=== PATIENT | female | born 1995 | race American Indian/Alaskan Native ===

== ENCOUNTER 2016-12-18 21:09 | Emergency (ER) | payer MEDICAID ==
[2016-12-18 21:10] VITALS: BMI 54.9
[2016-12-18 21:21] VITALS: BP 126/91; PULSE 92; RESP 19; TEMP 98.6; O2SAT 99
--- NOTE | 2016-12-18 21:57 | ED PDOC ---
Arrival/HPI - General Chief Complaint: Abdominal Pain Time Seen by Provider: 12/18/16 21:30 Historian: Patient - History of Present Illness Narrative History of Present Illness (Text): 12/18/16 21:55 21 year old female whose past medical history includes impulse control disorder , major depression, PTSD, and migraines presents to the emergency department with intermittent abdominal pain for the past few days. Denies fever, nausea, vomiting, constipation, or stool changes. She states this has never happened before. PMD: Dr. Artis Time/Duration: < week Symptom Onset: Gradual Symptom Course: Intermittent Associated Symptoms (Text): None Past Medical History - Provider Review Nursing Documentation Reviewed: Yes - Infectious Disease Hx of Infectious Diseases: None - Tetanus Immunization Tetanus Immunization: Unknown - Cardiac Hx Cardiac Disorders: No - Pulmonary Hx Respiratory Disorders: Yes Hx Bronchitis: Yes - Neurological Hx Neurological Disorder: No - HEENT Hx HEENT Disorder: No - Renal Hx Renal Disorder: No - Endocrine/Metabolic Hx Endocrine Disorders: No - Hematological/Oncological Hx Blood Disorders: No - Integumentary Hx Dermatological Disorder: No - Musculoskeletal/Rheumatological Hx Falls: No - Gastrointestinal Hx Gastrointestinal Disorders: No - Genitourinary/Gynecological Hx Genitourinary Disorders: No Other/Comment: i 2 abortions - Psychiatric Hx Anxiety: Yes Hx Depression: Yes Hx Post Traumatic Stress Disorder: Yes Hx Substance Use: No Other/Comment: suicde attempt - Surgical History Other/Comment: x 1 - Anesthesia Hx Anesthesia: No Hx Anesthesia Reactions: No - Suicidal Assessment Feels Threatened In Home Enviroment: No Family/Social History - Physician Review Nursing Documentation Reviewed: Yes Family/Social History: Unknown Family HX Smoking Status: Never Smoked Hx Alcohol Use: No Hx Substance Use: No Allergies/Home Meds Allergies/Adverse Reactions: Allergies Latex, Natural Rubber Allergy (Mild, Verified 12/18/16 21:17) ITCHING Home Medications: Home Meds Medication Instructions Recorded Confirmed Albuterol HFA [Ventolin HFA 90 1 puff IH PRN PRN 12/18/16 12/18/16 mcg/actuation (8 g)] Review of Systems - Physician Review All systems were reviewed & negative as marked: Yes - Review of Systems Constitutional: absent: Fevers Gastrointestinal: Abdominal Pain. absent: Stool Changes, Constipation, Nausea, Vomiting Physical Exam Vital Signs Reviewed: Yes Vital Signs Temp Pulse Resp BP Pulse Ox 12/18/16 21:20 98.6 F 92 H 19 126/91 H 99 Temperature: Afebrile Blood Pressure: Normal Pulse: Regular Respiratory Rate: Normal Appearance: Positive for: Well-Appearing, Non-Toxic, Comfortable Pain Distress: None Mental Status: Positive for: Alert and Oriented X 3 - Systems Exam Head: Present: Atraumatic, Normocephalic Pupils: Present: PERRL Extroacular Muscles: Present: EOMI Conjunctiva: Present: Normal Mouth: Present: Moist Mucous Membranes Neck: Present: Normal Range of Motion Respiratory/Chest: Present: Clear to Auscultation, Good Air Exchange. No: Respiratory Distress, Accessory Muscle Use Cardiovascular: Present: Regular Rate and Rhythm, Normal S1, S2. No: Murmurs Abdomen: Present: Normal Bowel Sounds, Other (Obese). No: Tenderness, Distention, Peritoneal Signs Upper Extremity: No: Cyanosis, Edema Lower Extremity: Present: Normal Inspection. No: Edema Neurological: Present: GCS=15 Skin: Present: Warm, Dry, Normal Color. No: Rashes Psychiatric: Present: Alert, Oriented x 3, Normal Insight Medical Decision Making ED Course and Treatment: Impression: 21 year old female who denies any past medical history presents to the emergency department with intermittent abdominal pain for the past few days. Differential Diagnosis included but are not limited to: Plan: -- Pepcid -- Labs -- Reassess and disposition Progress Notes: pt sleeping throughout ER stay. tolerating po. appears in no distress. labs reviewed and gone over with patient. dx abd pain, gastritis pepcid follow up pcp tomorrow 12/19/16 11:29 - Lab Interpretations Lab Results: 12/18/16 22:33 12/18/16 22:17 Lab Results 12/18/16 22:59: Urine Color Yellow, Urine Appearance Sl cloudy, Urine pH 6.0, Ur Specific [place] >= 1.030, Urine Protein Trace H, Urine Glucose (UA) Negative , Urine Ketones Negative, Urine Blood Moderate H, Urine Nitrate Negative, Urine Bilirubin Negative, Urine Urobilinogen 0.2, Ur Leukocyte Esterase Small H, Urine RBC 2 - 5, Urine WBC 10 - 15, Ur Epithelial Cells 1 - 3, Urine Bacteria Few 12/18/16 22:33: WBC 9.1 D, RBC 4.12, Hgb 12.5, Hct 37.7, MCV 91.5, MCH 30.3, MCHC 33.2, RDW 12.8, Plt Count 238, MPV 10.6, Gran % 47.6 L, Lymph % (Auto) 40.0 H, [place] % (Auto) 7.7 H, Eos % (Auto) 4.0, Baso % (Auto) 0.7, Gran # 4.35, Lymph # 3.7 H, [place] # 0.7 H, Eos # 0.4, Baso # 0.06 12/18/16 22:17: Sodium 136, Potassium 3.9, Chloride 103, Carbon Dioxide 26, Anion Gap 11, BUN 17, Creatinine 0.8, Est GFR ( Amer) > 60, Est GFR (Non- Af Amer) > 60, Random Glucose 94, Calcium 9.1, Total Bilirubin 0.6, AST 22, ALT 33, Alkaline Phosphatase 117, Total Protein 6.8, Albumin 3.7, Globulin 3.1, Albumin/Globulin Ratio 1.2, Lipase 87 - Medication Orders Current Medication Orders: Discontinued Medications Famotidine (Pepcid) 20 mg IVP STAT STA Stop: 12/18/16 22:01 Last Admin: 12/19/16 00:06 Dose: 20 mg - Scribe Statement The provider has reviewed the documentation as recorded by the Jacobo Herr Provider Scribe Attestation: All medical record entries made by the Jacobo were at my direction and personally dictated by me. I have reviewed the chart and agree that the record accurately reflects my personal performance of the history, physical exam, medical decision making, and the department course for this patient. I have also personally directed, reviewed, and agree with the discharge instructions and disposition. Disposition/Present on Arrival - Present on Arrival Any Indicators Present on Arrival: No History of DVT/PE: No History of Uncontrolled Diabetes: No Urinary Catheter: No History of Decub. Ulcer: No History Surgical Site Infection Following: None - Disposition Have Diagnosis and Disposition been Completed?: Yes Diagnosis: Gastritis, Abdominal pain Disposition: HOME/ ROUTINE Disposition Time: 23:00 Condition: IMPROVED Discharge Instructions (ExitCare): Gastritis (ED) Additional Instructions: follow up with your primary doctor tomorrow return to the emergency department with any worsening or concerning symptoms Prescriptions: Famotidine [Pepcid] 20 mg PO BID PRN #10 tab PRN Reason: Heartburn Referrals: Yvette Artis MD [Primary Care Provider] - Follow up with primary
[2016-12-18 22:42] LABS: ADD MANUAL DIFF? NO; BASO # 0.06 K/mm3 (0.0-2.0); BASO % 0.7 % (0.0-3.0); EOS # 0.4 (0.0-0.7); GRAN # 4.35 (1.4-6.5); GRAN % 47.6 % (50.0-68.0); HEMATOCRIT 37.7 % (36.0-48.0); LYMPH # 3.7 (1.2-3.4); MEAN CELL VOLUME 91.5 fL (80.0-105.0); MEAN CORPUSCULAR HEMOGLOBIN 30.3 pg (25.0-35.0); MEAN CORPUSCULAR HGB CONC 33.2 g/dl (31.0-37.0); MEAN PLATELET VOLUME 10.6 fl (7.0-11.0); MONO # 0.7 (0.1-0.6); MONO % 7.7 % (1.0-6.0); PLATELET COUNT 238 10^3/uL (120.0-450.0); RED CELL DISTRIBUTION WIDTH 12.8 % (11.5-14.5); WHITE BLOOD COUNT 9.1 10^3/ul (4.5-11.0)
[2016-12-18 22:52] LABS: ALB/GLOB RATIO 1.2 (1.1-1.8); ALKALINE PHOSPHATASE 117 U/L (38-133); ALT/SGPT 33 U/L (7-56); AST/SGOT 22 U/L (15-39); BILIRUBIN,TOTAL 0.6 mg/dL (0.2-1.3); BLOOD UREA NITROGEN 17 mg/dL (7-21); CALCIUM 9.1 mg/dL (8.4-10.5); CARBON DIOXIDE 26 mmol/L (21-33); CHLORIDE 103 mmol/L (98-107); GFR AFRICAN-AMERICAN > 60; GLUCOSE,RANDOM 94 mg/dL (70-110); LIPASE 87 U/L (23-300); POTASSIUM 3.9 mmol/L (3.6-5.0); SODIUM 136 mmol/L (132-148); TOTAL PROTEIN 6.8 g/dL (5.8-8.3)
[2016-12-19 00:42] LABS: URINE BILIRUBIN NEGATIVE (NEGATIVE); URINE BLOOD MODERATE (NEGATIVE); URINE GLUCOSE (UA) NEGATIVE (NEGATIVE); URINE KETONE NEGATIVE (NEGATIVE); URINE LEUKOCYTE ESTERASE SMALL Leu/uL (NEGATIVE); URINE PROTEIN TRACE mg/dL (<30 mg/dL); URINE UROBILINOGEN 0.2 E.U./dL (<1 E.U./dL)
[2016-12-19 00:57] LABS: URINE APPEARANCE SL CLOUDY (CLEAR); URINE COLOR YELLOW (YELLOW)
[2016-12-19 01:09] LABS: URINE BACTERIA FEW (NEG)
== END 2016-12-19 00:09 | disposition home or self-care (01) ==
LOC: ED 21:09
DX: R10.9 Unspecified abdominal pain (principal); K29.70 Gastritis, unspecified, without bleeding

== ENCOUNTER 2017-01-07 02:34 | Observation (INO) | payer MEDICAID ==
[2017-01-07 02:34] VITALS: BMI 54.9
--- NOTE | 2017-01-07 03:18 | ED PDOC ---
Arrival/HPI - General Chief Complaint: Lower Extremity Problem/Injury Time Seen by Provider: 01/07/17 02:43 Historian: Patient - History of Present Illness Narrative History of Present Illness (Text): 01/07/17 03:18 Andreas Ramirez is a 21 year old female, whose past medical history includes depression, who presents to the ED complaining of left lower leg pain for 1 week. Patient reports associate swelling to the area. Patient denies any recent trauma, fever, chills, nausea, vomiting, weakness/numbness/tingling in the extremity, or any other complaints. Time/Duration: 1 week Symptom Onset: Gradual Symptom Course: Unchanged Activities at Onset: Rest, Light Context: Home Past Medical History - Provider Review Nursing Documentation Reviewed: Yes - Infectious Disease Hx of Infectious Diseases: None - Tetanus Immunization Tetanus Immunization: Unknown - Cardiac Hx Cardiac Disorders: No - Pulmonary Hx Respiratory Disorders: Yes Hx Bronchitis: Yes - Neurological Hx Neurological Disorder: No - HEENT Hx HEENT Disorder: No - Renal Hx Renal Disorder: No - Endocrine/Metabolic Hx Endocrine Disorders: No - Hematological/Oncological Hx Blood Disorders: No - Integumentary Hx Dermatological Disorder: No - Musculoskeletal/Rheumatological Hx Falls: No - Gastrointestinal Hx Gastrointestinal Disorders: No - Genitourinary/Gynecological Hx Genitourinary Disorders: No Other/Comment: i 2 abortions - Psychiatric Hx Anxiety: Yes Hx Depression: Yes Hx Post Traumatic Stress Disorder: Yes Hx Substance Use: No Other/Comment: suicde attempt - Surgical History Other/Comment: x 1 - Anesthesia Hx Anesthesia: No Hx Anesthesia Reactions: No - Suicidal Assessment Feels Threatened In Home Enviroment: No Family/Social History - Physician Review Nursing Documentation Reviewed: Yes Family/Social History: Unknown Family HX Smoking Status: Light Smoker < 10 Cigarettes Daily Hx Alcohol Use: No Hx Substance Use: No Allergies/Home Meds Allergies/Adverse Reactions: Allergies Latex, Natural Rubber Allergy (Mild, Verified 12/18/16 21:17) ITCHING Review of Systems - Physician Review All systems were reviewed & negative as marked: Yes - Review of Systems Constitutional: Normal. absent: Fevers Respiratory: Normal. absent: SOB, Cough Cardiovascular: Normal. absent: Chest Pain Gastrointestinal: Normal. absent: Abdominal Pain, Diarrhea, Nausea, Vomiting Genitourinary Female: Normal. absent: Dysuria, Frequency, Hematuria, Urine Output Changes Musculoskeletal: Other (+left foot pain with swelling). absent: Back Pain, Neck Pain Skin: Normal Neurological: Normal. absent: Headache, Dizziness Psychiatric: Normal Physical Exam Vital Signs Reviewed: Yes Vital Signs Temp Pulse Resp BP Pulse Ox 01/07/17 02:58 98.2 F 82 17 137/70 97 Temperature: Afebrile Blood Pressure: Normal Pulse: Regular Respiratory Rate: Normal Appearance: Positive for: Well-Appearing, Non-Toxic, Comfortable Pain Distress: None Mental Status: Positive for: Alert and Oriented X 3 - Systems Exam Head: Present: Atraumatic, Normocephalic Pupils: Present: PERRL Extroacular Muscles: Present: EOMI Conjunctiva: Present: Normal Mouth: Present: Moist Mucous Membranes Neck: Present: Normal Range of Motion Respiratory/Chest: Present: Clear to Auscultation, Good Air Exchange. No: Respiratory Distress, Accessory Muscle Use Cardiovascular: Present: Regular Rate and Rhythm, Normal S1, S2. No: Murmurs Abdomen: Present: Normal Bowel Sounds. No: Tenderness, Distention, Peritoneal Signs Back: Present: Normal Inspection Upper Extremity: Present: Normal Inspection. No: Cyanosis, Edema Lower Extremity: Present: Swelling (Left leg swelling with warmth and erythema) , Neurovascularly Intact, Capillary Refill < 2 s. No: Edema Neurological: Present: GCS=15, CN II-XII Intact, Speech Normal Skin: Present: Warm, Dry, Normal Color. No: Rashes Psychiatric: Present: Alert, Oriented x 3, Normal Insight, Normal Concentration Medical Decision Making ED Course and Treatment: 01/07/17 03:18 Impression: 21 year old female c/o left lower leg swelling with pain for 1 week. Differential Diagnosis included but are not limited to: cellulitis vs. DVT vs. gout vs. pseudogout Plan: -- US Duplex Lower Extremities -- Labs, Uric acid, blood culture -- UA -- Reassess and disposition Progress Notes: 01/07/17 04:38 Reviewed sono, US Duplex Lower Extremities shows no evidence of DVT. 01/07/17 05:[address] Fletcher, medical record clerk preparation plant repairer, who is aware and agrees with plan. 01/07/17 05:[address] Raymundo Silverio, who is aware and agrees with plan. Accepts pt in to hospitalist service. Pt will go to [facility] observation for cellulitis. Vanco and Zosyn ordered. Pt is no acute distress. Discussed results and plan with pt, who is aware and verbalizes understanding. - Lab Interpretations Lab Results: 01/07/17 03:45 01/07/17 04:10 Lab Results 01/07/17 04:10: Sodium 136, Potassium 4.0, Chloride 106, Carbon Dioxide 26, Anion Gap 8 L, BUN 12, Creatinine 0.8, Est GFR ( Amer) > 60, Est GFR (Non -Af Amer) > 60, Random Glucose 97, Uric Acid 6.4 H, Calcium 8.8, Total Bilirubin 0.3, AST 21, ALT 28, Alkaline Phosphatase 130, Total Protein 6.3, Albumin 3.4, Globulin 2.9, Albumin/Globulin Ratio 1.2 01/07/17 03:45: WBC 5.8 D, RBC 3.53, Hgb 10.7 L, Hct 33.1 L, MCV 93.8, MCH 30.3 , MCHC 32.3, RDW 13.6, Plt Count 195, MPV 11.4 H I have reviewed the lab results: Yes - RAD Interpretation Radiology Orders: 01/07/17 03:27 DUPLEX LOWER EXTRM VEIN BILAT [US] Stat - Medication Orders Current Medication Orders: Vancomycin HCl/Dextrose (Vancocin) 200 mls @ 133.333 mls/hr IV STAT STA PRN Reason: Protocol Stop: 01/07/17 07:12 Piperacillin Sod/Tazobactam Sod (Zosyn 3.375 In Ns 100ml) 100 mls @ 200 mls/hr IV STAT STA PRN Reason: Protocol Stop: 01/07/17 06:14 - Scribe Statement The provider has reviewed the documentation as recorded by the Scribbuster Rocha All medical record entries made by the Scribe were at my direction and personally dictated by me. I have reviewed the chart and agree that the record accurately reflects my personal performance of the history, physical exam, medical decision making, and the department course for this patient. I have also personally directed, reviewed, and agree with the discharge instructions and disposition. Disposition/Present on Arrival - Present on Arrival Any Indicators Present on Arrival: No History of DVT/PE: No History of Uncontrolled Diabetes: No Urinary Catheter: No History of Decub. Ulcer: No History Surgical Site Infection Following: None - Disposition Have Diagnosis and Disposition been Completed?: Yes Diagnosis: Cellulitis of leg Disposition: HOSPITALIZED Disposition Time: 05:49 Patient Plan: Observation Condition: STABLE
[2017-01-07 04:05] LABS: HEMOGLOBIN 10.7 gm/dL (12.0-16.0); MEAN CELL VOLUME 93.8 fL (80.0-105.0); MEAN CORPUSCULAR HEMOGLOBIN 30.3 pg (25.0-35.0); MEAN CORPUSCULAR HGB CONC 32.3 g/dl (31.0-37.0); MEAN PLATELET VOLUME 11.4 fl (7.0-11.0); RBC 3.53 10^6/uL (3.5-6.1); RED CELL DISTRIBUTION WIDTH 13.6 % (11.5-14.5)
[2017-01-07 04:09] LABS: WHITE BLOOD COUNT 5.8 10^3/ul (4.5-11.0)
[2017-01-07 04:34] LABS: ALB/GLOB RATIO 1.2 (1.1-1.8); ALBUMIN 3.4 g/dL (3.0-4.8); ALT/SGPT 28 U/L (7-56); AST/SGOT 21 U/L (15-39); BLOOD UREA NITROGEN 12 mg/dL (7-21); CALCIUM 8.8 mg/dL (8.4-10.5); GFR AFRICAN-AMERICAN > 60; GFR NON-AFRICAN AMERICAN > 60; URIC ACID 6.4 mg/dL (2.5-6.2)
--- NOTE | 2017-01-07 05:40 | CP.PCM.HP ---
History of Present Illness - History of Present Illness History of Present Illness: cc: foot pain HPI: Patient is a 21yo female with past medical history as stated below that presents c/o LLE pain for the past 2 weeks. Patient reports that her left foot and ankle first began to swell and subsequently the pain began. She described the pain as a pressure, non-radiating and 7/10 in severity. She denies any alleviating or exacerbating factors. Denies trying any medications at home. Reports that she did not see her PMD, Dr. Artis despite the pain ongoing for the past 2 weeks. She subsequently decided to come to the ED, once the pain and swelling impaired her ability to do her ADL's. Denies chest pain, palpitations, SOB, abdominal pain, nausea, vomiting, fever, chills, cough. 12point ROS as per HPI above, otherwise negative PMHx: polysubstance abuse; suicide attempt, depression, morbid obesity PSHx: R ankle surgery Allergies: latex Family hx: heart condition, unknown Social Hx: Denies tobacco use, history of polysubstance abuse, social alcohol use; Live alone PMD: Dr Artis Present on Admission - Present on Admission Any Indicators Present on Admission: No Past Patient History - Infectious Disease Hx of Infectious Diseases: None - Tetanus Immunizations Tetanus Immunization: Unknown - Past Social History Smoking Status: Light Smoker < 10 Cigarettes Daily - CARDIAC Hx Cardiac Disorders: No - PULMONARY Hx Respiratory Disorders: Yes Hx Bronchitis: Yes - NEUROLOGICAL Hx Neurological Disorder: No - HEENT Hx HEENT Problems: No - RENAL Hx Chronic Kidney Disease: No - ENDOCRINE/METABOLIC Hx Endocrine Disorders: No - HEMATOLOGICAL/ONCOLOGICAL Hx Blood Disorders: No - INTEGUMENTARY Hx Dermatological Problems: No - MUSCULOSKELETAL/RHEUMATOLOGICAL Hx Falls: No - GASTROINTESTINAL Hx Gastrointestinal Disorders: No - GENITOURINARY/GYNECOLOGICAL Hx Genitourinary Disorders: No Other/Comment: i 2 abortions - PSYCHIATRIC Hx Anxiety: Yes Hx Depression: Yes Hx Post Traumatic Stress Disorder: Yes Hx Substance Use: No Other/Comment: suicde attempt - SURGICAL HISTORY Other/Comment: x 1 - ANESTHESIA Hx Anesthesia: No Hx Anesthesia Reactions: No Meds Allergies/Adverse Reactions: Allergies Allergy/AdvReac Type Severity Reaction Status Date / Time Latex, Natural Rubber Allergy Mild ITCHING Verified 12/18/16 21:17 Physical Exam - Constitutional Appears: Non-toxic, No Acute Distress Additional comments: morbidly obese - Head Exam Head Exam: ATRAUMATIC, NORMAL INSPECTION, NORMOCEPHALIC - Eye Exam Eye Exam: EOMI, PERRL - ENT Exam ENT Exam: Mucous Membranes Moist - Neck Exam Neck exam: Positive for: Normal Inspection. Negative for: Lymphadenopathy, Tenderness - Respiratory Exam Respiratory Exam: Clear to Auscultation Bilateral. absent: Rales, Rhonchi, Wheezes - Cardiovascular Exam Cardiovascular Exam: RRR, +S1, +S2. absent: Gallop, JVD, Rubs - GI/Abdominal Exam GI & Abdominal Exam: Normal Bowel Sounds, Soft. absent: Firm, Guarding, Rigid, Tenderness - Extremities Exam Additional comments: 2-3+ pitting LLE edema progressing from the foot up towards the campos ; - Neurological Exam Neurological exam: Alert, CN II-XII Intact, Oriented x3 - Psychiatric Exam Psychiatric exam: Normal Affect, Normal Mood - Skin Skin Exam: Dry, Intact, Normal Color, Warm Results - Vital Signs Recent Vital Signs: Last Vital Signs Temp 98.2 F 01/07/17 02:58 Pulse 82 01/07/17 02:58 Resp 17 01/07/17 02:58 BP 137/70 01/07/17 02:58 Pulse Ox 97 01/07/17 02:58 - Labs Result Diagrams: 01/07/17 03:45 01/07/17 04:10 Labs: Laboratory Results - last 24 hr 01/07/17 01/07/17 03:45 04:10 WBC 5.8 D RBC 3.53 Hgb 10.7 L Hct 33.1 L MCV 93.8 MCH 30.3 MCHC 32.3 RDW 13.6 Plt Count 195 MPV 11.4 H Sodium 136 Potassium 4.0 Chloride 106 Carbon Dioxide 26 Anion Gap 8 L BUN 12 Creatinine 0.8 Est GFR ( Amer) > 60 Est GFR (Non-Af Amer) > 60 Random Glucose 97 Uric Acid 6.4 H Calcium 8.8 Total Bilirubin 0.3 AST 21 ALT 28 Alkaline Phosphatase 130 Total Protein 6.3 Albumin 3.4 Globulin 2.9 Albumin/Globulin Ratio 1.2 Assessment & Plan - Assessment and Plan (Free Text) Plan: 21yo female with history of depression, polysubstance abuse, morbid obesity presents c/o LLE swelling/pain for the past 2 weeks 1. LLE swelling pain likely 2/2 cellulitis vs gout vs DVT -Lower extremity doppler pending official read; however preliminarily negative -afebrile, no leukocytosis -Patient given zosyn and vanc in the ED -Blood, urine cultures pending -Procalcitonin pending -ID consulted - Dr. Hollis 2. GI/DVT Prophylaxis -Protonix/Heparin SC Patient seen and case discussed with attending, Dr. Silverio - Date & Time Date: 01/07/17 Time: 06:01
[2017-01-07] MEDS ORDERED: Piperacillin/Tazobact 3.375 gm 100 ML IV STA (05:45)
[2017-01-07] MEDS ORDERED: Vancomycin 1gm in NS 250ml 1 GM/250 ML BAG IVPB STA (05:50)
[2017-01-07 06:19] LABS: URINE BILIRUBIN NEGATIVE (NEGATIVE); URINE BLOOD LARGE (NEGATIVE); URINE GLUCOSE (UA) NEGATIVE (NEGATIVE); URINE LEUKOCYTE ESTERASE MODERATE Leu/uL (NEGATIVE); URINE NITRATE NEGATIVE (NEGATIVE); URINE PROTEIN TRACE mg/dL (<30 mg/dL); URINE UROBILINOGEN 0.2 E.U./dL (<1 E.U./dL)
[2017-01-07 06:24] LABS: HCG,QUALITATIVE URINE NEGATIVE (NEGATIVE)
[2017-01-07 06:25] LABS: URINE APPEARANCE SLIGHT-CLOUDY (CLEAR); URINE COLOR YELLOW (YELLOW)
[2017-01-07 06:30] LABS: URINE BACTERIA MOD (NEG); URINE EPITHELIAL CELLS 0 - 2 /hpf (0-5); URINE RBC 0 - 2 /hpf (0-2); URINE WBC TNTC /hpf (0-6)
--- NOTE | 2017-01-07 13:16 | US ---
HISTORY: Leg pain and swelling. Evaluate for DVT PHYSICIAN(S): Guzman Rosario MD. TECHNIQUE: Duplex sonography and color-flow Doppler with graded compression were used to evaluate the deep venous systems of both lower extremities. The exam is limited by body habitus. FINDINGS: The visualized deep venous systems of both lower extremities are sonographically normal and compressible. Normal wave forms and augmentation are seen. There is no sonographic evidence for deep venous thrombosis in the visualized segments of both lower extremities. IMPRESSION: No sonographic evidence for deep venous thrombosis in the visualized segments of both lower extremities.
[2017-01-07] MEDS: cefTRIAXone 1 gm 1 GM/100 ML BAG IVPB SCH (14:43)
--- NOTE | 2017-01-07 14:59 | RAD ---
PROCEDURE: Left Foot Radiographs. HISTORY: Foot pain COMPARISON: None. FINDINGS: BONES: Normal. No fracture. JOINTS: There is moderate hallux valgus angulation measuring 130 degrees SOFT TISSUES: Normal. OTHER FINDINGS: None. IMPRESSION: Moderate hallux valgus angulation
[2017-01-07 18:38] LABS: BARBITURATES, UR NEGATIVE (NEGATIVE); BENZODIAZEPINES, UR NEGATIVE (NEGATIVE); OPIATES, UR NEGATIVE (NEGATIVE); PHENCYCLIDINE, UR NEGATIVE (NEGATIVE)
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
[2017-01-08 08:41] VITALS: PULSE 72
[2017-01-08 08:56] LABS: BASO # 0.03 K/mm3 (0.0-2.0); BASO % 0.6 % (0.0-3.0); EOS # 0.5 (0.0-0.7); EOS % 8.3 % (1.5-5.0); GRAN # 2.71 (1.4-6.5); GRAN % 50.2 % (50.0-68.0); HEMOGLOBIN 11.3 gm/dL (12.0-16.0); LYMPH # 1.8 (1.2-3.4); LYMPH % 32.7 % (22.0-35.0); MEAN CELL VOLUME 92.4 fL (80.0-105.0); MEAN CORPUSCULAR HEMOGLOBIN 29.7 pg (25.0-35.0); MEAN CORPUSCULAR HGB CONC 32.1 g/dl (31.0-37.0); MEAN PLATELET VOLUME 10.5 fl (7.0-11.0); MONO # 0.4 (0.1-0.6); MONO % 8.2 % (1.0-6.0); PLATELET COUNT 209 10^3/uL (120.0-450.0); RBC 3.81 10^6/uL (3.5-6.1); RED CELL DISTRIBUTION WIDTH 13.3 % (11.5-14.5); WHITE BLOOD COUNT 5.4 10^3/ul (4.5-11.0)
[2017-01-08 09:00] LABS: ALB/GLOB RATIO 1.2 (1.1-1.8); ALBUMIN 3.3 g/dL (3.0-4.8); ALT/SGPT 32 U/L (7-56); AST/SGOT 25 U/L (15-39); BLOOD UREA NITROGEN 11 mg/dL (7-21); CALCIUM 8.6 mg/dL (8.4-10.5); GFR AFRICAN-AMERICAN > 60; GFR NON-AFRICAN AMERICAN > 60
[2017-01-08] MEDS: cefTRIAXone 1 gm 1 GM/100 ML BAG IVPB SCH (10:10)
--- NOTE | 2017-01-08 12:46 | CP.PCM.DIS ---
<[employer] - Last Filed: 01/08/17 15:06> Provider - Provider Date of Admission: 01/07/17 05:47 Attending physician: Danielle Castellano MD Primary care physician: Yvette Artis MD Consults: Infectious disease Time Spent in preparation of Discharge (in minutes): 40 Hospital Course - Lab Results Lab Results: Micro Results 01/07/17 11:00 Blood Blood Culture - Preliminary NO GROWTH AFTER 24 HOURS Most Recent Lab Values WBC 5.4 10^3/ul (4.5-11.0) 01/08/17 08:43 RBC 3.81 10^6/uL (3.5-6.1) 01/08/17 08:43 Hgb 11.3 gm/dL (12.0-16.0) L 01/08/17 08:43 Hct 35.2 % (36.0-48.0) L 01/08/17 08:43 MCV 92.4 fL (80.0-105.0) 01/08/17 08:43 MCH 29.7 pg (25.0-35.0) 01/08/17 08:43 MCHC 32.1 g/dl (31.0-37.0) 01/08/17 08:43 RDW 13.3 % (11.5-14.5) 01/08/17 08:43 Plt Count 209 10^3/uL (120.0-450.0) 01/08/17 08:43 MPV 10.5 fl (7.0-11.0) 01/08/17 08:43 Gran % 50.2 % (50.0-68.0) 01/08/17 08:43 Lymph % (Auto) 32.7 % (22.0-35.0) 01/08/17 08:43 [place] % (Auto) 8.2 % (1.0-6.0) H 01/08/17 08:43 Eos % (Auto) 8.3 % (1.5-5.0) H 01/08/17 08:43 Baso % (Auto) 0.6 % (0.0-3.0) 01/08/17 08:43 Gran # 2.71 (1.4-6.5) 01/08/17 08:43 Lymph # 1.8 (1.2-3.4) 01/08/17 08:43 [place] # 0.4 (0.1-0.6) 01/08/17 08:43 Eos # 0.5 (0.0-0.7) 01/08/17 08:43 Baso # 0.03 K/mm3 (0.0-2.0) 01/08/17 08:43 Sodium 135 mmol/L (132-148) 01/08/17 08:43 Potassium 3.9 mmol/L (3.6-5.0) 01/08/17 08:43 Chloride 105 mmol/L (98-107) 01/08/17 08:43 Carbon Dioxide 26 mmol/L (21-33) 01/08/17 08:43 Anion Gap 8 (10-20) L 01/08/17 08:43 BUN 11 mg/dL (7-21) 01/08/17 08:43 Creatinine 0.8 mg/dL (0.5-1.4) 01/08/17 08:43 Est GFR ( Amer) > 60 01/08/17 08:43 Est GFR (Non-Af Amer) > 60 01/08/17 08:43 Random Glucose 80 mg/dL (70-110) 01/08/17 08:43 Uric Acid 6.4 mg/dL (2.5-6.2) H 01/07/17 04:10 Calcium 8.6 mg/dL (8.4-10.5) 01/08/17 08:43 Total Bilirubin 0.5 mg/dL (0.2-1.3) 01/08/17 08:43 AST 25 U/L (15-39) 01/08/17 08:43 ALT 32 U/L (7-56) 01/08/17 08:43 Alkaline Phosphatase 87 U/L (38-133) 01/08/17 08:43 Total Protein 6.0 g/dL (5.8-8.3) 01/08/17 08:43 Albumin 3.3 g/dL (3.0-4.8) 01/08/17 08:43 Globulin 2.7 gm/dL 01/08/17 08:43 Albumin/Globulin Ratio 1.2 (1.1-1.8) 01/08/17 08:43 Procalcitonin < 0.05 NG/ML (0.19-0.49) L 01/07/17 04:00 Urine Color Yellow (YELLOW) 01/07/17 05:45 Urine Appearance Slight-cloudy (CLEAR) 01/07/17 05:45 Urine pH 6.0 (4.7-8.0) 01/07/17 05:45 Ur Specific Datto >= 1.030 (1.005-1.035) 01/07/17 05:45 Urine Protein Trace mg/dL (<30 mg/dL) H 01/07/17 05:45 Urine Glucose (UA) Negative mg/dL (NEGATIVE) 01/07/17 05:45 Urine Ketones Negative mg/dL (NEGATIVE) 01/07/17 05:45 Urine Blood Large (NEGATIVE) H 01/07/17 05:45 Urine Nitrate Negative (NEGATIVE) 01/07/17 05:45 Urine Bilirubin Negative (NEGATIVE) 01/07/17 05:45 Urine Urobilinogen 0.2 E.U./dL (<1 E.U./dL) 01/07/17 05:45 Ur Leukocyte Esterase Moderate Isabel/uL (NEGATIVE) H 01/07/17 05:45 Urine RBC 0 - 2 /hpf (0-2) 01/07/17 05:45 Urine WBC Tntc /hpf (0-6) 01/07/17 05:45 Ur Epithelial Cells 0 - 2 /hpf (0-5) 01/07/17 05:45 Urine Bacteria Mod (NEG) 01/07/17 05:45 Urine HCG, Qual Negative (NEGATIVE) 01/07/17 05:45 Urine Opiates Screen Negative (NEGATIVE) 01/07/17 18:13 Urine Methadone Screen Negative (NEGATIVE) 01/07/17 18:13 Ur Barbiturates Screen Negative (NEGATIVE) 01/07/17 18:13 Ur Phencyclidine Scrn Negative (NEGATIVE) 01/07/17 18:13 Ur Amphetamines Screen Negative (NEGATIVE) 01/07/17 18:13 U Benzodiazepines Scrn Negative (NEGATIVE) 01/07/17 18:13 U Oth Cocaine Metabols Negative (NEGATIVE) 01/07/17 18:13 U Cannabinoids Screen Positive (NEGATIVE) H 01/07/17 18:13 - Hospital Course Hospital Course: 21yo female with pMHx of polysubstance abuse, suicide attempt, and depression presented c/o LLE pain for the past 2 weeks. In the ED, Basic labwork was done. Patient was given Vancomycin and Zosyn. A US duplex of the lower extremities was obtained and showed no evidence of DVT. Pt was transferred to med/surg for continued observation. ID was consulted and dced Vancomycin and Zosyn and pt was started on Ceftriaxone. Pt c/o L foot pain and x-ray was obtained of the left foot showed moderate hallux valgus angulation - Podiatry was recommended for out pt follow up. Today pt reports decreased pain, erythema, and swelling of her left ankle and foot. On physical exam edema and erythyma has significantly improved. Denies headaches, dizziness, nausea, vomiting, CP, palpations, SOB, cough, and abdominal pain. Pt to be d/c home on Keflex 500 BID x7 days. Discharge Exam - Head Exam Head Exam: ATRAUMATIC, NORMOCEPHALIC - Eye Exam Eye Exam: EOMI, Normal appearance, PERRL - ENT Exam ENT Exam: Mucous Membranes Moist - Neck Exam Neck exam: Full Rom - Respiratory Exam Respiratory Exam: NORMAL BREATHING PATTERN. absent: Rales, Rhonchi, Wheezes, Respiratory Distress, Stridor - Cardiovascular Exam Cardiovascular Exam: RRR, +S1, +S2. absent: Clicks, Diastolic murmur, Gallop, Rubs - GI/Abdominal Exam GI & Abdominal Exam: Normal Bowel Sounds, Soft. absent: Distended, Guarding, Organomegaly, Tenderness - Extremities Exam Extremities exam: joint swelling (decreased swelling of left foot and ankle), tenderness (decreased LLE tenderness to palpation) - Neurological Exam Neurological exam: Alert, Oriented x3 - Skin Skin Exam: Erythema (decreased erythema to LLE), Normal Color, Warm Discharge Plan - Discharge Medications Prescriptions: Cephalexin [cephalexin] 500 mg PO BID #14 cap - Follow Up Plan Condition: STABLE Disposition: HOME/ ROUTINE Instructions: Cellulitis (DC), Cellulitis (GEN) Additional Instructions: Follow-up with podiatry is recommended for b/l great toe. Continue to take your antibiotic as directed by your doctor, do not skip a dose , do not stop abruptly. Referrals: Yvette Artis MD [Primary Care Provider] - Rodrick Hollis MD [Staff Provider] - <Danielle Castellano - Last Filed: 01/08/17 16:08> Provider - Provider Date of Admission: 01/07/17 05:47 Attending physician: Danielle Castellano MD Primary care physician: Yvette Artis MD Hospital Course - Lab Results Lab Results: Micro Results 01/07/17 11:00 Blood Blood Culture - Preliminary NO GROWTH AFTER 24 HOURS Most Recent Lab Values WBC 5.4 10^3/ul (4.5-11.0) 01/08/17 08:43 RBC 3.81 10^6/uL (3.5-6.1) 01/08/17 08:43 Hgb 11.3 gm/dL (12.0-16.0) L 01/08/17 08:43 Hct 35.2 % (36.0-48.0) L 01/08/17 08:43 MCV 92.4 fL (80.0-105.0) 01/08/17 08:43 MCH 29.7 pg (25.0-35.0) 01/08/17 08:43 MCHC 32.1 g/dl (31.0-37.0) 01/08/17 08:43 RDW 13.3 % (11.5-14.5) 01/08/17 08:43 Plt Count 209 10^3/uL (120.0-450.0) 01/08/17 08:43 MPV 10.5 fl (7.0-11.0) 01/08/17 08:43 Gran % 50.2 % (50.0-68.0) 01/08/17 08:43 Lymph % (Auto) 32.7 % (22.0-35.0) 01/08/17 08:43 [place] % (Auto) 8.2 % (1.0-6.0) H 01/08/17 08:43 Eos % (Auto) 8.3 % (1.5-5.0) H 01/08/17 08:43 Baso % (Auto) 0.6 % (0.0-3.0) 01/08/17 08:43 Gran # 2.71 (1.4-6.5) 01/08/17 08:43 Lymph # 1.8 (1.2-3.4) 01/08/17 08:43 [place] # 0.4 (0.1-0.6) 01/08/17 08:43 Eos # 0.5 (0.0-0.7) 01/08/17 08:43 Baso # 0.03 K/mm3 (0.0-2.0) 01/08/17 08:43 Sodium 135 mmol/L (132-148) 01/08/17 08:43 Potassium 3.9 mmol/L (3.6-5.0) 01/08/17 08:43 Chloride 105 mmol/L (98-107) 01/08/17 08:43 Carbon Dioxide 26 mmol/L (21-33) 01/08/17 08:43 Anion Gap 8 (10-20) L 01/08/17 08:43 BUN 11 mg/dL (7-21) 01/08/17 08:43 Creatinine 0.8 mg/dL (0.5-1.4) 01/08/17 08:43 Est GFR ( Amer) > 60 01/08/17 08:43 Est GFR (Non-Af Amer) > 60 01/08/17 08:43 Random Glucose 80 mg/dL (70-110) 01/08/17 08:43 Uric Acid 6.4 mg/dL (2.5-6.2) H 01/07/17 04:10 Calcium 8.6 mg/dL (8.4-10.5) 01/08/17 08:43 Total Bilirubin 0.5 mg/dL (0.2-1.3) 01/08/17 08:43 AST 25 U/L (15-39) 01/08/17 08:43 ALT 32 U/L (7-56) 01/08/17 08:43 Alkaline Phosphatase 87 U/L (38-133) 01/08/17 08:43 Total Protein 6.0 g/dL (5.8-8.3) 01/08/17 08:43 Albumin 3.3 g/dL (3.0-4.8) 01/08/17 08:43 Globulin 2.7 gm/dL 01/08/17 08:43 Albumin/Globulin Ratio 1.2 (1.1-1.8) 01/08/17 08:43 Procalcitonin < 0.05 NG/ML (0.19-0.49) L 01/07/17 04:00 Urine Color Yellow (YELLOW) 01/07/17 05:45 Urine Appearance Slight-cloudy (CLEAR) 01/07/17 05:45 Urine pH 6.0 (4.7-8.0) 01/07/17 05:45 Ur Specific Datto >= 1.030 (1.005-1.035) 01/07/17 05:45 Urine Protein Trace mg/dL (<30 mg/dL) H 01/07/17 05:45 Urine Glucose (UA) Negative mg/dL (NEGATIVE) 01/07/17 05:45 Urine Ketones Negative mg/dL (NEGATIVE) 01/07/17 05:45 Urine Blood Large (NEGATIVE) H 01/07/17 05:45 Urine Nitrate Negative (NEGATIVE) 01/07/17 05:45 Urine Bilirubin Negative (NEGATIVE) 01/07/17 05:45 Urine Urobilinogen 0.2 E.U./dL (<1 E.U./dL) 01/07/17 05:45 Ur Leukocyte Esterase Moderate Isabel/uL (NEGATIVE) H 01/07/17 05:45 Urine RBC 0 - 2 /hpf (0-2) 01/07/17 05:45 Urine WBC Tntc /hpf (0-6) 01/07/17 05:45 Ur Epithelial Cells 0 - 2 /hpf (0-5) 01/07/17 05:45 Urine Bacteria Mod (NEG) 01/07/17 05:45 Urine HCG, Qual Negative (NEGATIVE) 01/07/17 05:45 Urine Opiates Screen Negative (NEGATIVE) 01/07/17 18:13 Urine Methadone Screen Negative (NEGATIVE) 01/07/17 18:13 Ur Barbiturates Screen Negative (NEGATIVE) 01/07/17 18:13 Ur Phencyclidine Scrn Negative (NEGATIVE) 01/07/17 18:13 Ur Amphetamines Screen Negative (NEGATIVE) 01/07/17 18:13 U Benzodiazepines Scrn Negative (NEGATIVE) 01/07/17 18:13 U Oth Cocaine Metabols Negative (NEGATIVE) 01/07/17 18:13 U Cannabinoids Screen Positive (NEGATIVE) H 01/07/17 18:13 Attending/Attestation - Attestation I have personally seen and examined this patient.: Yes I have fully participated in the care of the patient.: Yes I have reviewed all pertinent clinical information, including history, physical exam and plan: Yes Notes (Text): 01/08/17 16:04 21 year old female who presented with complaint of left foot/leg pain, swelling and erythema. She was started on antibiotics for mild cellulitis which improved. Doppler was negative. Xray showed moderate hallux valgus angulation. Ucx grew gram negative dewey and 1 Bcx was positive for coag negative staph (likely contaminant). Overall her symptoms improved. Patient will be discharged on po keflex. Follow up with pmd. Follow up with podiatry as outpatient. Counselled on weight loss, diet and exercise with lifestyle modifications. Danielle Castellano MD Hospitalist.
--- NOTE | 2017-01-08 16:13 | CP.PCM.PN ---
Subjective - Date & Time of Evaluation Date of Evaluation: 01/08/17 Time of Evaluation: 15:30 - Subjective Subjective: Infectious Disease Follow Up: January 08, 2017 21 yo AA female who is morbidly obese presenting with left lower leg, ankle, and foot. The patient states that the swelling has been present for the past 2 weeks. The patient states pain in the left ankle and foot started a few days ago. The patient denies hypertension and diabetes mellitus. The patient states her medical issues include PTSD, anxiety, and depression. She came to the ER after she started having problems with mobility. The patient has had some improvement since starting IV antibiotics. Objective - Vital Signs/Intake and Output Vital Signs (last 24 hours): Temp Pulse Resp BP Pulse Ox 98.6 F 72 20 112/66 99 01/07/17 16:00 01/08/17 06:00 01/08/17 06:00 01/08/17 06:00 01/08/17 06:00 Intake and Output: 01/08/17 01/08/17 06:59 18:59 Intake Total 930 Balance 930 - Medications Medications: Current Medications Ceftriaxone Sodium (Rocephin 1 Gram Ivpb) 1 gm in 100 mls @ 100 mls/hr IVPB DAILY ADOLFO PRN Reason: Protocol Last Admin: 01/08/17 10:10 Dose: 100 mls/hr Ketorolac Tromethamine (Toradol) 15 mg IVP Q6H PRN PRN Reason: Pain, severe (8-10) Last Admin: 01/08/17 06:48 Dose: 15 mg - Labs Labs: 01/08/17 08:43 01/08/17 08:43 - Constitutional Appears: Non-toxic, No Acute Distress, Chronically Ill - Head Exam Head Exam: ATRAUMATIC, NORMOCEPHALIC - Eye Exam Eye Exam: EOMI, PERRL Pupil Exam: NORMAL ACCOMODATION, PERRL - ENT Exam ENT Exam: Mucous Membranes Moist, Normal External Ear Exam, TM's Normal Bilaterally - Neck Exam Neck Exam: Full ROM, Normal Inspection - Respiratory Exam Respiratory Exam: Clear to Ausculation Bilateral, NORMAL BREATHING PATTERN. absent: Rales, Rhonchi, Wheezes - Cardiovascular Exam Cardiovascular Exam: REGULAR RHYTHM, RRR, +S1, +S2 - GI/Abdominal Exam GI & Abdominal Exam: Soft, Normal Bowel Sounds. absent: Distended, Tenderness - Extremities Exam Additional comments: left ankle and foot swelling +1. Mild tenderness. Overall edema has decreased in the lower left leg. - Neurological Exam Neurological Exam: Alert, Awake, CN II-XII Intact, Oriented x3 - Psychiatric Exam Psychiatric exam: Normal Affect, Normal Mood - Skin Additional comments: As per extremities exam. Assessment and Plan - Assessment and Plan (Free Text) Assessment: 21 yo AA female who is morbidly obese with left lower leg, ankle, and foot cellulitis started on Rocephin for antibiotic treatment. The patient has a history of polysubstance abuse and issues with anxiety and depression. The patient has resolvement of erythema at this time with mild warmth to the ankle and foot. The patient still with swelling of the lower leg, ankle, and foot on the left leg. Will continue on Rocephin alone for now. Can consider use of Keflex 500 mg TID for 14 days more on discharge. Thank you for allowing me to participate in the care of the patient, we will follow with you.
[2017-01-08 16:18] VITALS: BP 94/46; RESP 18; TEMP 98.2; O2SAT 100
== END 2017-01-08 16:31 | disposition home or self-care (01) ==
LOC: ED 02:34 → ERH 05:47 → 3RNO 08:30 → 3RSO 13:00
PROVIDERS: ADMIT Internal Medicine; ATTEND Internal Medicine
DX: L03.116 Cellulitis of left lower limb (principal); E66.01 Morbid (severe) obesity due to excess calories; F32.9 Major depressive disorder, single episode, unspecified; F19.10 Other psychoactive substance abuse, uncomplicated; M25.572 Pain in left ankle and joints of left foot; F43.10 Post-traumatic stress disorder, unspecified
CPT/HCPCS: 36415; 73630; 80053; 80320; 80324; 80345; 80346; 80349; 80353; 80358; 80361; 81001; 82009; 83992; 84145; 84550; 84600; 84703; 85025; 85027; 87040; 87086; 87149; 93970; 96365; 96366; 96367; 96375; 99285; G0378; J0696; J1885; J2543

== ENCOUNTER 2017-01-16 19:38 | Emergency (ER) | payer MEDICAID ==
[2017-01-16 19:48] VITALS: BMI 53.5
[2017-01-16 19:54] VITALS: TEMP 99.1
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
[2017-01-16 22:21] VITALS: BP 121/52; PULSE 89; RESP 18; O2SAT 96
== END 2017-01-16 22:45 | disposition home or self-care (01) ==
LOC: ED 19:38
DX: M10.9 Gout, unspecified (principal); J06.9 Acute upper respiratory infection, unspecified

== ENCOUNTER 2017-01-19 00:35 | Emergency (ER) | payer MEDICAID ==
[2017-01-19 00:35] VITALS: BMI 53.5
[2017-01-19] MEDS ORDERED: Amoxicillin-Clav 875-125 mg Tab PO STA (01:07)
[2017-01-19] MEDS ORDERED: TDAP Vaccine 0.5 mL Syr IM ONE (01:07)
[2017-01-19] MEDS ORDERED: Oxycodone/Acetaminophen 5/325 mg Tab PO STA (01:07)
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
[2017-01-19 12:24] VITALS: BP 106/66; PULSE 78; RESP 16; TEMP 98.8; O2SAT 98
== END 2017-01-19 04:01 | disposition home or self-care (01) ==
LOC: ED 00:35
DX: S00.12XA Contusion of left eyelid and periocular area, initial encounter (principal); Y08.89XA Assault by other specified means, initial encounter; Y92.9 Unspecified place or not applicable; Z23 Encounter for immunization

== ENCOUNTER 2017-07-27 13:09 | Inpatient (IN) | payer MEDICAID, OTHER ==
[2017-07-27 13:26] VITALS: BMI 58.1
[2017-07-27 15:43] LABS: BASO # 0.04 K/mm3 (0.0-2.0); BASO % 0.5 % (0.0-3.0); EOS # 0.3 (0.0-0.7); EOS % 3.5 % (1.5-5.0); GRAN # 4.18 (1.4-6.5); GRAN % 56.8 % (50.0-68.0); HEMOGLOBIN 12.2 g/dL (12.0-16.0); LYMPH # 2.2 (1.2-3.4); LYMPH % 29.9 % (22.0-35.0); MEAN CELL VOLUME 94.2 fl (80.0-105.0); MEAN CORPUSCULAR HEMOGLOBIN 30.7 pg (25.0-35.0); MEAN CORPUSCULAR HGB CONC 32.6 g/dl (31.0-37.0); MEAN PLATELET VOLUME 11.5 fl (7.0-11.0); MONO # 0.7 (0.1-0.6); MONO % 9.3 % (1.0-6.0); RBC 3.97 10^6/uL (3.5-6.1); RED CELL DISTRIBUTION WIDTH 13.6 % (11.5-14.5); WHITE BLOOD COUNT 7.4 10^3/ul (4.5-11.0)
[2017-07-27 15:52] LABS: ALB/GLOB RATIO 1.3 (1.1-1.8); ALBUMIN 4.2 g/dL (3.0-4.8); ALT/SGPT 31 U/L (7-56); AST/SGOT 26 U/L (14-36); BLOOD UREA NITROGEN 11 mg/dL (7-21); CALCIUM 9.8 mg/dL (8.4-10.5); GFR AFRICAN-AMERICAN > 60; GFR NON-AFRICAN AMERICAN > 60
[2017-07-27 16:02] LABS: ACETAMINOPHEN < 10.0 ug/ml (10.0-20.0); SALICYLATE < 1 mg/dL (2.0-20.0)
[2017-07-27 16:33] LABS: BARBITURATES, UR NEGATIVE (NEGATIVE); BENZODIAZEPINES, UR NEGATIVE (NEGATIVE); OPIATES, UR NEGATIVE (NEGATIVE); PHENCYCLIDINE, UR NEGATIVE (NEGATIVE)
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
[2017-07-27 16:37] LABS: URINE BILIRUBIN SMALL (NEGATIVE); URINE BLOOD MODERATE (NEGATIVE); URINE GLUCOSE (UA) NEGATIVE (NEGATIVE); URINE LEUKOCYTE ESTERASE MODERATE Leu/uL (NEGATIVE); URINE NITRATE NEGATIVE (NEGATIVE); URINE PROTEIN 30 mg/dL (<30 mg/dL)
[2017-07-27 16:39] LABS: URINE COLOR YELLOW (YELLOW)
[2017-07-27 16:40] LABS: URINE APPEARANCE CLOUDY (CLEAR)
[2017-07-27 16:55] LABS: URINE WBC TNTC /hpf (0-6)
[2017-07-27 16:56] LABS: URINE BACTERIA TRACE (NEG)
--- NOTE | 2017-07-27 18:36 | PCM.BM ---
<JulesbethanieRick - Last Filed: 07/27/17 18:32> Treatment Plan Problems - Problems identified on initial assessmt ALTERED THOUGHT PROCESS Date Initiated: 07/27/17 Time Initiated: 18:32 Assessment reference: HP, NA Status: Active INEFFECTIVE IMPULSE CONTROL Date Initiated: 07/27/17 Time Initiated: 18:33 Assessment reference: HP, NA Status: Active MEDICATION NON ADHERENCE Date Initiated: 07/27/17 Time Initiated: 18:33 Assessment reference: HP, NA Status: Active Treatment assets and liabiliti Patient Assests: educated, physically healthy Patient Liabilities: live alone, substance abuse - Milieu Protocol Maintain good personal hygiene: daily Encourage regular showers, daily Remind patient to perform daily oral care, daily Assist patient to perform ADL's Maintain personal safety: daily Educate patient to report safety concerns to staff, daily Monitor environment for contraband/sharps Medication safety: Monitor for expected outcome, potential side effects: daily, Assess barriers to learning: daily, Assess readiness for medication education: daily Discharge/Continuing Care - Education Needs Education Needs: Patient Medication, Patient Diagnosis/Disease Process, Patient Coping Skills, Patient Anger Management skills, Patient Placement options, Patient Community resources, Patient Activities of Daily Living, Patient Pain, Patient Nutrition, Patient Uses of Medical Equipment, Patient Health Practices/ Safety, Patient Personal Hygiene/Grooming, Patient Aftercare Safety Plan - Discharge Discharge Criteria: Free of Suicidal thoughts, Free of Homicidal thoughts, Free of paranoid thoughts, Free of agitation, Normal sleep pattern, Ability to care for self <Haley Fair - Last Filed: 07/29/17 16:39> Family Contact Family involvement: Famliy/SO not involved Family contact: Patient declines to allow family contact at present <Felisha Daley - Last Filed: 07/30/17 08:28> - Diagnosis (1) Bipolar disorder with psychotic features Status: Acute Interventions: Medication management with tegretol, ativan, risperdal. Hold on prozac for now. 07/30/17 08:27
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
[2017-07-28 09:58] LABS: BASO # 0.03 K/mm3 (0.0-2.0); BASO % 0.5 % (0.0-3.0); EOS # 0.3 (0.0-0.7); EOS % 5.4 % (1.5-5.0); GRAN # 3.7 (1.4-6.5); GRAN % 59.2 % (50.0-68.0); HEMOGLOBIN 11.7 g/dL (12.0-16.0); LYMPH # 1.7 (1.2-3.4); LYMPH % 26.9 % (22.0-35.0); MEAN CELL VOLUME 95.5 fl (80.0-105.0); MEAN CORPUSCULAR HEMOGLOBIN 30.6 pg (25.0-35.0); MEAN CORPUSCULAR HGB CONC 32.1 g/dl (31.0-37.0); MEAN PLATELET VOLUME 11.9 fl (7.0-11.0); MONO # 0.5 (0.1-0.6); RBC 3.82 10^6/uL (3.5-6.1); RED CELL DISTRIBUTION WIDTH 13.6 % (11.5-14.5); WHITE BLOOD COUNT 6.3 10^3/ul (4.5-11.0)
--- NOTE | 2017-07-28 10:20 | CARD ---
APPROVED REPORT EKG Measurement Heart [id number] <Conclusion> Normal sinus rhythm with sinus arrhythmia Normal ECG
[2017-07-28 10:35] LABS: ALB/GLOB RATIO 1.2 (1.1-1.8); ALBUMIN 3.6 g/dL (3.0-4.8); ALT/SGPT 32 U/L (7-56); AST/SGOT 37 U/L (14-36); BLOOD UREA NITROGEN 9 mg/dL (7-21); GFR AFRICAN-AMERICAN > 60; GFR NON-AFRICAN AMERICAN > 60; HDL CHOLESTEROL 40 mg/dL (29-60); LDL CHOLESTEROL 95 mg/dL (0-129)
[2017-07-28] MEDS: Tmp-Smz 800 mg-160 mg DS Tab PO SCH ×2 (11:37→17:00)
[2017-07-28] MEDS: cefTRIAXone (Rocephin) 250 mg Inj IM STA (12:15)
--- NOTE | 2017-07-28 12:17 | CP.PCM.CON ---
<Gwendolyn Coleman - Last Filed: 07/28/17 13:35> History of Present Illness - History of Present Illness History of Present Illness: Gwendolyn Coleman DO PGY1 - Internal Medicine Consult Note CC: Suicidal ideation HPI: 22 yo F with PMH of depression, PTSD, bipolar disorder, morbid obesity, and right knee ligamentous injury who presented to the [facility] complaining of worsening depression and suicidal ideation. Patient reports that she had not taken her medications since Saturday (4 days prior to presentation). She denies having a plan or having attempted. She does report prior attempts, including one which resulted in her admission to the ICU for overdose of unknown medications. In the ED, she was noted to have probably UTI according to the UA. She denies dysuria or hematuria, vaginal discharge. Admits to urinary frequency. She also admits to sore throat, hoarse, voice, cough, headache, body ache, and chills for the past day. She denies fever, chest pain, shortness of breath, abdominal pain, nausea, vomiting, diarrhea, constipation. Remainder of 12 point ROS negative except as above. PMH: As above PSHx: R ankle surgery Allergies: latex Family hx: heart disease, kidney disease, diabetes, stroke; breast cancer in grandmother Social Hx: Smokes 1/2 PPD x8 months, history of polysubstance abuse, now uses marijuana daily, social alcohol use; Homeless; Multiple sexual partners in the past 2 months Past Patient History - Infectious Disease Hx of Infectious Diseases: None - Tetanus Immunizations Tetanus Immunization: Unknown - Past Social History Smoking Status: Light Smoker < 10 Cigarettes Daily - CARDIAC Hx Cardiac Disorders: No Hx Hypertension: No - PULMONARY Hx Tuberculosis: No - NEUROLOGICAL HX Cerebrovascular Accident: No Hx Seizures: Yes - HEENT Hx HEENT Problems: No - RENAL Hx Chronic Kidney Disease: No - ENDOCRINE/METABOLIC Hx Endocrine Disorders: No - HEMATOLOGICAL/ONCOLOGICAL Hx Cancer: No - INTEGUMENTARY Hx Dermatological Problems: No - MUSCULOSKELETAL/RHEUMATOLOGICAL Hx Falls: No - GASTROINTESTINAL Hx Gastrointestinal Disorders: No - GENITOURINARY/GYNECOLOGICAL Hx Sexually Transmitted Disorders: No - PSYCHIATRIC Hx Bipolar Disorder: Yes Hx Substance Use: Yes (POT) - SURGICAL HISTORY Other/Comment: x 1, D&C - ANESTHESIA Hx Anesthesia: Yes Hx Anesthesia Reactions: No Meds Allergies/Adverse Reactions: Allergies Allergy/AdvReac Type Severity Reaction Status Date / Time Latex, Natural Rubber Allergy Mild ITCHING Verified 01/16/17 19:48 - Medications Medications: Current Medications Carbamazepine (Tegretol) 200 mg PO HS [facility] PRN Reason: Protocol Last Admin: 07/27/17 23:27 Dose: 200 mg Carbamazepine (Tegretol) 200 mg PO DAILY [facility] PRN Reason: Protocol Ceftriaxone Sodium (Rocephin) 250 mg IM STAT STA PRN Reason: Protocol Stop: 07/28/17 11:46 Haloperidol (Haldol) 5 mg PO Q6 PRN PRN Reason: Moderate Agitation Last Admin: 07/27/17 18:53 Dose: 5 mg Haloperidol Lactate (Haldol) 5 mg IM Q6 PRN PRN Reason: Moderate Agitation Lorazepam (Ativan) 2 mg PO Q6 PRN PRN Reason: Severe Agitation Last Admin: 07/27/17 18:53 Dose: 2 mg Lorazepam (Ativan) 2 mg IM Q6 PRN; Protocol PRN Reason: Agitation Lorazepam (Ativan) 1 mg PO [facility] Last Admin: 07/28/17 10:29 Dose: 1 mg Risperidone (Risperdal Tab) 2 mg PO [facility] [address] Last Admin: 07/28/17 10:34 Dose: 2 mg Trazodone HCl (Desyrel) 100 mg PO [facility] Last Admin: 07/27/17 23:27 Dose: 100 mg Trimethoprim/Sulfamethoxazole (Bactrim Ds Tab) 1 tab PO BID [facility] PRN Reason: Protocol Stop: 08/04/17 23:59 Last Admin: 07/28/17 11:37 Dose: 1 tab Physical Exam - Constitutional Appears: Non-toxic, No Acute Distress - Head Exam Head Exam: ATRAUMATIC, NORMOCEPHALIC - Eye Exam Eye Exam: EOMI, Normal appearance, PERRL. absent: Scleral icterus - ENT Exam ENT Exam: Mucous Membranes Moist - Neck Exam Neck exam: Positive for: Normal Inspection - Respiratory Exam Respiratory Exam: Clear to Auscultation Bilateral, NORMAL BREATHING PATTERN - Cardiovascular Exam Cardiovascular Exam: REGULAR RHYTHM, +S1, +S2. absent: Tachycardia - GI/Abdominal Exam GI & Abdominal Exam: Normal Bowel Sounds, Soft. absent: Tenderness - Extremities Exam Extremities exam: Negative for: calf tenderness, pedal edema Additional comments: Healing ulcer on plantar aspect of right foot - Back Exam Back exam: absent: CVA tenderness (L), CVA tenderness (R) - Neurological Exam Neurological exam: Alert, CN II-XII Intact, Oriented x3 - Psychiatric Exam Psychiatric exam: Depressed, Normal Affect - Skin Skin Exam: Dry, Intact, Normal Color Results - Vital Signs Recent Vital Signs: Last Vital Signs Temp 98.7 F 07/27/17 19:00 Pulse 87 07/27/17 19:00 Resp 20 07/27/17 19:00 BP 138/69 07/27/17 19:00 Pulse Ox 100 07/27/17 19:00 - Labs Result Diagrams: 07/28/17 09:50 07/28/17 09:50 Labs: Laboratory Results - last 24 hr 07/28/17 07/28/17 07/28/17 09:50 09:50 10:25 WBC 6.3 RBC 3.82 Hgb 11.7 L Hct 36.5 MCV 95.5 MCH 30.6 MCHC 32.1 RDW 13.6 Plt Count 161 MPV 11.9 H Gran % 59.2 Lymph % (Auto) 26.9 [place] % (Auto) 8.0 H Eos % (Auto) 5.4 H Baso % (Auto) 0.5 Gran # 3.70 Lymph # 1.7 [place] # 0.5 Eos # 0.3 Baso # 0.03 Sodium 138 Potassium 3.7 Chloride 107 Carbon Dioxide 22 Anion Gap 12 BUN 9 Creatinine 0.8 Est GFR ( Amer) > 60 Est GFR (Non-Af Amer) > 60 Random Glucose 98 Calcium 9.0 Total Bilirubin 1.4 H AST 37 H D ALT 32 Alkaline Phosphatase 36 L D Total Protein 6.6 Albumin 3.6 Globulin 3.0 Albumin/Globulin Ratio 1.2 Triglycerides 95 Cholesterol 167 LDL Cholesterol Direct 95 HDL Cholesterol 40 Carbamazepine 4 Assessment & Plan - Assessment and Plan (Free Text) Assessment: 22 yo F with PMH of depression, PTSD, bipolar disorder, morbid obesity, and right knee ligamentous injury who presented to the [facility] ER complaining of worsening depression and suicidal ideation. Also noted to have probable UTI, and complaining of flu-like symptoms. Depression, suicidal ideation - Patient remains depressed with thoughts of suicide; denies homicidal ideation - Management per psych Probable UTI - UA significant for moderate blood, moderate LE, Tntc WBC, and trace bacteria - UCx ordered - Patient received one dose of macrobid in the ER - Start bactrim 750 mg PO QD x7d - Urine gonorrhea and chlamydia ordered, considering sexual history of history of STD's - Given one dose of Rocephin IM and Azithromycin PO for emperic treatment of the above - Patient instruction on genital hygiene Flu-like symptoms - Patient is afebrile, without leukocytosis; not observed to be coughing; physical exam benign - Ordered flu swab; start tamiflu and initiate droplet precautions if positive GI/DVT Ppx not indicated Patient seen, discussed, and reviewed with attending Dr. Silverio <Brandie Silverio - Last Filed: 07/28/17 16:17> Meds - Medications Medications: Current Medications Carbamazepine (Tegretol) 200 mg PO [facility] PRN Reason: Protocol Last Admin: 07/27/17 23:27 Dose: 200 mg Carbamazepine (Tegretol) 200 mg PO DAILY ADOLFO PRN Reason: Protocol Haloperidol (Haldol) 5 mg PO Q6 PRN PRN Reason: Moderate Agitation Last Admin: 07/27/17 18:53 Dose: 5 mg Haloperidol Lactate (Haldol) 5 mg IM Q6 PRN PRN Reason: Moderate Agitation Lorazepam (Ativan) 2 mg PO Q6 PRN PRN Reason: Severe Agitation Last Admin: 07/27/17 18:53 Dose: 2 mg Lorazepam (Ativan) 2 mg IM Q6 PRN; Protocol PRN Reason: Agitation Lorazepam (Ativan) 1 mg PO [facility] Last Admin: 07/28/17 10:29 Dose: 1 mg Risperidone (Risperdal Tab) 2 mg PO [facility] Last Admin: 07/28/17 10:34 Dose: 2 mg Trazodone HCl (Desyrel) 100 mg PO [facility] Last Admin: 07/27/17 23:27 Dose: 100 mg Trimethoprim/Sulfamethoxazole (Bactrim Ds Tab) 1 tab PO BID [facility] PRN Reason: Protocol Stop: 08/04/17 23:59 Last Admin: 07/28/17 11:37 Dose: 1 tab Results - Vital Signs Recent Vital Signs: Last Vital Signs Temp 98.7 F 07/27/17 19:00 Pulse 87 07/27/17 19:00 Resp 20 07/27/17 19:00 BP 138/69 07/27/17 19:00 Pulse Ox 100 07/27/17 19:00 - Labs Result Diagrams: 07/28/17 09:50 07/28/17 09:50 Labs: Laboratory Results - last 24 hr 07/28/17 07/28/17 07/28/17 09:50 09:50 10:25 WBC 6.3 RBC 3.82 Hgb 11.7 L Hct 36.5 MCV 95.5 MCH 30.6 MCHC 32.1 RDW 13.6 Plt Count 161 MPV 11.9 H Gran % 59.2 Lymph % (Auto) 26.9 [place] % (Auto) 8.0 H Eos % (Auto) 5.4 H Baso % (Auto) 0.5 Gran # 3.70 Lymph # 1.7 [place] # 0.5 Eos # 0.3 Baso # 0.03 Sodium 138 Potassium 3.7 Chloride 107 Carbon Dioxide 22 Anion Gap 12 BUN 9 Creatinine 0.8 Est GFR ( Amer) > 60 Est GFR (Non-Af Amer) > 60 Random Glucose 98 Calcium 9.0 Total Bilirubin 1.4 H AST 37 H D ALT 32 Alkaline Phosphatase 36 L D Total Protein 6.6 Albumin 3.6 Globulin 3.0 Albumin/Globulin Ratio 1.2 Triglycerides 95 Cholesterol 167 LDL Cholesterol Direct 95 HDL Cholesterol 40 Carbamazepine 4 Influenza Typ A,B (EIA) 07/28/17 13:30 WBC RBC Hgb Hct MCV MCH MCHC RDW Plt Count MPV Gran % Lymph % (Auto) [place] % (Auto) Eos % (Auto) Baso % (Auto) Gran # Lymph # [place] # Eos # Baso # Sodium Potassium Chloride Carbon Dioxide Anion Gap BUN Creatinine Est GFR ( Amer) Est GFR (Non-Af Amer) Random Glucose Calcium Total Bilirubin AST ALT Alkaline Phosphatase Total Protein Albumin Globulin Albumin/Globulin Ratio Triglycerides Cholesterol LDL Cholesterol Direct HDL Cholesterol Carbamazepine Influenza Typ A,B (EIA) Negative for flu a/b Attending/Attestation - Attestation I have personally seen and examined this patient.: Yes I have fully participated in the care of the patient.: Yes I have reviewed all pertinent clinical information: Yes Notes (Text): I have seen and examined the patient at bedside. Agree with the above note with the following additions/ exceptions: Briefly this is 22 year old female with history of depression, PTSD, Bipolar disorder, morbid obesity, homeless who was admitted for evaluation of depression and suicidal ideation. She complains of mild urinary frequency and intermittent abdominal pain most likely secondary to UTI. She has high risk sexual behavior. She does not use protection. Has h/o STD in the past which was treated. Urine GC pending. Will give dose of rocephin +Zitho and treat for UTI. Urine culture pending. Upon discharge patient will follow up with PMD in [place]. Dr Brandie Silverio
[2017-07-28] MEDS ORDERED: cefTRIAXone (Rocephin) 250 mg Inj IM ONE (12:30)
[2017-07-29 07:12] VITALS: O2SAT 98
[2017-07-29] MEDS: Tmp-Smz 800 mg-160 mg DS Tab PO SCH ×2 (09:10→17:27)
[2017-07-29] MEDS: Benzocaine/Menthol (Cepacol) Lozenge MT PRN ×2 (14:42→17:55)
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
[2017-07-29] MEDS: FLUoxetine Elix 20 MG/5 ML PO SCH (17:29)
[2017-07-30] MEDS: Tmp-Smz 800 mg-160 mg DS Tab PO SCH ×2 (08:21→17:46)
[2017-07-30] MEDS: FLUoxetine Elix 20 MG/5 ML PO SCH (09:10)
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
[2017-07-30] MEDS: Benzocaine/Menthol (Cepacol) Lozenge MT PRN (21:52)
[2017-07-31] MEDS: Benzocaine/Menthol (Cepacol) Lozenge MT PRN ×2 (10:51→21:14)
[2017-07-31] MEDS: FLUoxetine Elix 20 MG/5 ML PO SCH (11:27)
--- NOTE | 2017-07-31 14:29 | RAD ---
HISTORY: NEEDS FOR SCREENING TO [facility] COMPARISON: None available. TECHNIQUE: Chest, one view. FINDINGS: Examination limited by habitus. LUNGS: Possible mild pulmonary venous congestion. No focal consolidation. Please note that chest x-ray has limited sensitivity for the detection of pulmonary masses. PLEURA: No significant pleural effusion identified. No definite pneumothorax . CARDIOVASCULAR: Heart size appears within normal limits. OSSEOUS STRUCTURES: No acute osseous abnormality identified. VISUALIZED UPPER ABDOMEN: Unremarkable. OTHER FINDINGS: None. IMPRESSION: Limited study due to habitus. Possible mild pulmonary venous congestion.
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
[2017-07-31] MEDS: Amoxicillin-Clav 875-125 mg Tab PO SCH (17:06)
[2017-08-01] MEDS: Benzocaine/Menthol (Cepacol) Lozenge MT PRN (05:43)
[2017-08-01] MEDS: Amoxicillin-Clav 875-125 mg Tab PO SCH (06:43)
[2017-08-01 07:43] VITALS: BP 123/80; PULSE 81; RESP 22; TEMP 98
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
== END 2017-08-01 11:39 | disposition left against medical advice (07) | DRG 885 ==
LOC: ED 13:09 → ERH 16:37 → PSYC 17:46
PROVIDERS: ADMIT Psychiatry & Neurology Psychiatry; ATTEND Psychiatry & Neurology Psychiatry
PROC: GZ3ZZZZ Medication Management (ICD-10-PCS; principal; 2017-07-27)
DX: F31.5 Bipolar disorder, current episode depressed, severe, with psychotic features (principal); F63.9 Impulse disorder, unspecified; F12.10 Cannabis abuse, uncomplicated; E66.01 Morbid (severe) obesity due to excess calories; R45.851 Suicidal ideations; N39.0 Urinary tract infection, site not specified; Z68.43 Body mass index [BMI] 50.0-59.9, adult; F43.10 Post-traumatic stress disorder, unspecified; Z59.0 Homelessness; Z91.19 Patient's noncompliance with other medical treatment and regimen; F17.210 Nicotine dependence, cigarettes, uncomplicated

== ENCOUNTER 2017-09-02 15:21 | Emergency (ER) | payer MEDICAID, OTHER ==
[2017-09-02 15:58] VITALS: BMI 54.8
[2017-09-02] MEDS ORDERED: Sodium Chloride 0.9% 1,000 ML IV STA (17:08)
[2017-09-02 19:11] LABS: BASO # 0.04 K/mm3 (0.0-2.0); BASO % 0.7 % (0.0-3.0); EOS # 0.3 (0.0-0.7); EOS % 4.5 % (1.5-5.0); GRAN # 2.8 (1.4-6.5); GRAN % 46.1 % (50.0-68.0); HEMOGLOBIN 12.4 g/dL (12.0-16.0); LYMPH # 2.5 (1.2-3.4); LYMPH % 41.3 % (22.0-35.0); MEAN CELL VOLUME 95.5 fl (80.0-105.0); MEAN CORPUSCULAR HEMOGLOBIN 31.1 pg (25.0-35.0); MEAN CORPUSCULAR HGB CONC 32.5 g/dl (31.0-37.0); MONO # 0.5 (0.1-0.6); MONO % 7.4 % (1.0-6.0); RBC 3.99 10^6/uL (3.5-6.1); RED CELL DISTRIBUTION WIDTH 13.5 % (11.5-14.5); WHITE BLOOD COUNT 6.1 10^3/ul (4.5-11.0)
[2017-09-02 19:20] LABS: URINE BILIRUBIN NEGATIVE (NEGATIVE); URINE BLOOD LARGE (NEGATIVE); URINE GLUCOSE (UA) NEGATIVE (NEGATIVE); URINE LEUKOCYTE ESTERASE MODERATE Leu/uL (NEGATIVE); URINE NITRATE NEGATIVE (NEGATIVE); URINE PROTEIN TRACE mg/dL (<30 mg/dL); URINE UROBILINOGEN 0.2 E.U./dL (<1 E.U./dL)
[2017-09-02 19:23] LABS: ALB/GLOB RATIO 1.4 (1.1-1.8); ALBUMIN 3.7 g/dL (3.0-4.8); ALT/SGPT 33 U/L (7-56); AST/SGOT 22 U/L (14-36); BLOOD UREA NITROGEN 11 mg/dL (7-21); CALCIUM 9.3 mg/dL (8.4-10.5); GFR AFRICAN-AMERICAN > 60; GFR NON-AFRICAN AMERICAN > 60
[2017-09-02 19:23] LABS: URINE APPEARANCE SL CLOUDY (CLEAR); URINE COLOR YELLOW (YELLOW)
[2017-09-02 19:39] LABS: URINE RBC 15 - 20 /hpf (0-2)
[2017-09-02 19:40] LABS: URINE BACTERIA FEW (NEG)
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
[2017-09-02 21:45] VITALS: BP 122/82; PULSE 86; RESP 17; TEMP 98.2; O2SAT 98
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
--- NOTE | 2017-09-03 07:46 | RAD ---
HISTORY: cough COMPARISON: Portable chest 07/31/2017. TECHNIQUE: Chest PA and lateral FINDINGS: LUNGS: An apical lordotic type exposure of the frontal view is submitted. No active pulmonary disease. PLEURA: No significant pleural effusion identified. No pneumothorax apparent. CARDIOVASCULAR: Normal. OSSEOUS STRUCTURES: No significant abnormalities. VISUALIZED UPPER ABDOMEN: Normal. OTHER FINDINGS: None. IMPRESSION: No interval acute cardiopulmonary disease appreciated.
== END 2017-09-02 20:53 | disposition home or self-care (01) ==
LOC: ED 15:21
DX: N39.0 Urinary tract infection, site not specified (principal); R05 Cough; R10.9 Unspecified abdominal pain
CPT/HCPCS: 71046; 73630; 80053; 81001; 85025; 87086; 99283; J7040